=== PATIENT | male | born 1975 | race Two or more races ===

== ENCOUNTER 2020-09-09 10:55 | Emergency (ER) | payer SELFPAY ==
[~2020-09-09] VITALS: Ht 160 cm; Wt 74.0 kg
[2020-09-09 11:00] VITALS: BP 139/94
--- NOTE | 2020-09-09 11:35 | PHYS DOC ---
Past Medical History Past Medical History: Asthma Past Surgical History: Other Additional Past Surgical Histo: L KNEE Smoking Status: Former Smoker Alcohol Use: Occasionally General Adult EDM: Chief Complaint: SHORTNESS OF BREATH HPI: HPI: Patient is a 44 year old male presents to the emergency room for evaluation of intermittent headaches for 1 month. He reports started having some runny nose, mild cough nonproductive, and shortness of breath for 2 days. He denies any chest pain. He reports history of asthma as a child with no asthma attacks or recent medication use. He reports no known Covid contacts. Review of Systems: Review of Systems: Constitutional: Denies fever or chills. [] Eyes: Denies change in visual acuity. [] HENT: Denies nasal congestion or sore throat. [] Respiratory: reports cough and shortness of breath. [] Cardiovascular: Denies chest pain or edema. [] GI: Denies abdominal pain, nausea, vomiting, bloody stools or diarrhea. [] : Denies dysuria. [] Musculoskeletal: Denies back pain or joint pain. [] Integument: Denies rash. [] Neurologic: Denies headache, focal weakness or sensory changes. [] Endocrine: Denies polyuria or polydipsia. [] Lymphatic: Denies swollen glands. [] Psychiatric: Denies depression or anxiety. [] Heart Score: Risk Factors: Risk Factors: DM, Current or recent (<one month) smoker, HTN, HLP, family history of CAD, obesity. Risk Scores: Score 0 - 3: 2.5% MACE over next 6 weeks - Discharge Home Score 4 - 6: 20.3% MACE over next 6 weeks - Admit for Clinical Observation Score 7 - 10: 72.7% MACE over next 6 weeks - Early Invasive Strategies Allergies: Allergies: Allergies Coded Allergies Type Severity Reaction Last Updated Verified No Known Drug Allergies 09/09/20 No Physical Exam: PE: Constitutional: Well developed, well nourished, no acute distress, non-toxic appearance. [] HENT: Normocephalic, atraumatic, bilateral external ears normal, oropharynx moist, no oral exudates, nose normal. [] Eyes: PERRLA, EOMI, conjunctiva normal, no discharge. [] Cardiovascular:Heart rate regular rhythm, no murmur [] Lungs & Thorax: Bilateral breath sounds clear to auscultation [] Abdomen: Bowel sounds normal, soft, no tenderness, no masses, no pulsatile masses. [] Skin: Warm, dry, no erythema, no rash. [] Back: No tenderness, no CVA tenderness. [] Extremities: No tenderness, no cyanosis, no clubbing, ROM intact, no edema. [] Neurologic: Alert and oriented X 3, normal motor function, normal sensory function, no focal deficits noted. [] Psychologic: Affect normal, judgement normal, mood normal. [] Current Patient Data: Vital Signs: Vital Signs Date Time Temp Pulse Resp B/P (MAP) Pulse Ox O2 Delivery O2 Flow Rate FiO2 09/09/20 11:00 98.9 82 17 139/94 (109) 97 Room Air 98.9 EKG: EKG: [1123 EKG read by EDP, normal sinus rhythm rate 74, no STEMI] Radiology/Procedures: Radiology/Procedures: [PROCEDURE: CHEST AP ONLY INDICATION: Reason: SHORTNESS OF BREATH / Spl. Instructions: / History: COMPARISON: None. FINDINGS: Single view of chest obtained. No focal airspace consolidation. Cardiomediastinal contour unremarkable. No acute osseous abnormality. IMPRESSION: * No focal airspace consolidation or edema. Electronically signed by: Kayden Daugherty MD (09/09/2020 12:01 PM) [id number]] Course & Med Decision Making: Course & Med Decision Making Pertinent Labs and Imaging studies reviewed. (See chart for details) [Vital signs stable, patient afebrile and nontoxic in appearance, oxygen saturation 98 200% in room air. Patient understands Covid test results are pending at time of discharge, chest x-ray negative for acute findings. Patient should self quarantine until results received. He verbalized understanding and agrees with this plan of care.] Dragon Disclaimer: Tyra Disclaimer: This electronic medical record was generated, in whole or in part, using a voice recognition dictation system. Departure Departure Impression: Primary Impression: URI (upper respiratory infection) Qualified Codes: J06.9 - Acute upper respiratory infection, unspecified Disposition: 01 DC HOME SELF CARE/HOMELESS Referrals: NO PCP (PCP) Patient Instructions: Upper Respiratory Infection, Adult Scripts Albuterol Sulfate (VENTOLIN HFA INHALER) 18 Gm Hfa.aer.ad 2 PUFF INH Q4HRS for FOR ASTHMA for 7 Days, #1 INHALER 0 Refills Prov: ASCENCION ZARCO APRN 09/09/20 ASCENCION ZARCO APRN Sep 09, 2020 11:34
--- NOTE | 2020-09-09 12:04 | RAD ---
INDICATION: Reason: SHORTNESS OF BREATH / Spl. Instructions: / History: COMPARISON: None. FINDINGS: Single view of chest obtained. No focal airspace consolidation. Cardiomediastinal contour unremarkable. No acute osseous abnormality. IMPRESSION: * No focal airspace consolidation or edema. Electronically signed by: Kayden Daugherty MD (09/09/2020 12:01 PM) [id number]
[2020-09-09] MEDS ORDERED: VENTOLIN HFA18 GM INH (12:13)
== END 2020-09-09 12:34 | disposition home or self-care (01) ==
LOC: ER 10:55
DX: J06.9 Acute upper respiratory infection, unspecified (principal); Z20.828 Contact with and (suspected) exposure to other viral communicable diseases; J45.909 Unspecified asthma, uncomplicated; Z87.891 Personal history of nicotine dependence
CPT/HCPCS: 71045; 99284; C9803; U0003